=== PATIENT | female | born 1945 | race Caucasian/White ===

== ENCOUNTER 2017-07-25 13:18 | Emergency (ER) | payer OTHER ==
[2017-07-25] MEDS ORDERED: HYDROcod/ACETAM 5/325 MG TABLET PO STA (13:56)
--- NOTE | 2017-07-25 13:57 | ED Physician Documentation ---
History of Present Illness - Stated complaint Stated Complaint: NECK PX - Chief complaint Chief Complaint: General - History obtained from History obtained from: Patient - History of Present Illness Timing: Other (Over a month ago she fell pretty hard and hit her head. She has been having any problems until 2 days ago when she woke up with neck pain, predominantly on the right side. It hurts to both flex the neck and rotate to the right. No other new injuries. She denies weakness, numbness, tingling in the arms or extremities.) Review of Systems Constitutional: denies: Fever, Chills Throat: denies: Dental pain / toothache, Sore throat Cardiac: denies: Chest pain / pressure, Palpitations Respiratory: denies: Dyspnea, Cough PD PAST MEDICAL HISTORY - Present Medications Home Medications: Ambulatory Orders Medication Instructions Recorded Confirmed HYDROcod/ACETAM 5/325 [[place] 5/325] 1 - 2 ea PO Q6H PRN #15 tablet 07/25/17 Simvastatin 40 mg DAILY 07/25/17 07/25/17 - Allergies Allergies/Adverse Reactions: Allergies Allergy/AdvReac Type Severity Reaction Status Date / Time cephalexin [From Keflex] Allergy Mild Hives Verified 07/25/17 13:46 PD ED PE NORMAL - Vitals Vital signs reviewed: Yes - General General: Alert and oriented X 3, No acute distress - HEENT HEENT: PERRL, EOMI - Neck Neck: Other (She is having a lot of difficulty with movement of the neck, she is focally tender over the right sternocleidomastoid and not the midline. 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, interosseous strength, flexion and extension at the wrists, and thumb extension on both sides.) - Neuro Neuro: Alert and oriented X 3, Normal speech Results - Vitals Vitals: Vital Signs - 24 hr 07/25/17 07/25/17 13:40 15:15 Temperature 36.8 C 37.4 C Heart Rate 97 83 Respiratory 18 20 Rate Blood Pressure 187/100 H 159/84 H O2 Saturation 96 97 Oxygen O2 Source Room air - Rads (name of study) C spine CT Radiology: EMP read contemporaneously (Multilevel degenerative changes and osteoarthritic changes causing multilevel stenosis which is mild to moderate.) PD MEDICAL DECISION MAKING - ED course ED course: Clinically this seems most consistent with simple neck spasm, but given the antecedent trauma imaging was done without acute findings but she was counseled on the chronic findings that were found and given a copy of the report. - Sepsis Event Vital Signs: Vital Signs - 24 hr 07/25/17 07/25/17 13:40 15:15 Temperature 36.8 C 37.4 C Heart Rate 97 83 Respiratory 18 20 Rate Blood Pressure 187/100 H 159/84 H O2 Saturation 96 97 Oxygen O2 Source Room air Departure - Departure Disposition: 01 Home, Self Care Clinical Impression: Neck pain, Cervical stenosis of spinal canal Condition: Good Record reviewed to determine appropriate education?: Yes Instructions: ED Neck Pain No Trauma Prescriptions: HYDROcod/ACETAM 5/325 [[place] 5/325] 1 - 2 ea PO Q6H PRN #15 tablet PRN Reason: Pain Comments: You do have multilevel degenerative changes of your neck, but nothing from the injury a month ago. Follow-up with your physician. Return if worse. Your blood pressure was elevated today on check into the emergency department. This does not mean that you have hypertension, it is a common phenomenon to come to the emergency department and have elevated blood pressure. I recommend that you see your primary care physician within the week to have it rechecked when you are feeling better. Discharge Date/Time: 07/25/17 15:44
[2017-07-25 15:17] VITALS: BP 159/84
--- NOTE | 2017-07-25 16:10 | CT Report ---
Procedure Date: 07/25/2017 Accession Number: [id number] / [id number] Procedure: CT - Cervical Spine W/O CPT Code: FULL RESULT: EXAM: CT CERVICAL SPINE WITHOUT CONTRAST DATE: 07/25/2017 02:46 PM. HISTORY: Neck pain, injury. COMPARISONS: None. TECHNIQUE: Thin-section axial images were acquired of the cervical spine without contrast. Post-processing: Coronal and sagittal reformats. Other: None. In accordance with CT protocol optimization, one or more of the following dose reduction techniques were utilized for this exam: automated exposure control, adjustment of mA and/or KV based on patient size, or use of iterative reconstructive technique. FINDINGS: Alignment: No scoliosis. Moderate reversal of the normal cervical lordosis centered at C6-C7. 3 mm anterolisthesis at C4 on C5. 2 mm anterolisthesis at C5 on C6 and C7 on T1. Bones: No fracture or bone lesion. Interspace Levels/Facets: Moderate disk height loss and osteophytes at C3-C4, C5-C6, and C6-C7. C1-C2: Moderate degenerative changes anteriorly. C2-C3: Minimal disk osteophyte complex with small central disk protrusion. Minimal bilateral facet hypertrophy. Minimal central canal stenosis. C3-C4: Small disk osteophyte complex. Mild bilateral facet hypertrophy. [id number] central canal stenosis. Moderate bilateral neural foramen stenosis. C4-C5: Minimal disk osteophyte complex with small right paracentral disk protrusion. Moderate right facet hypertrophy. Mild central canal stenosis. C5-C6: Small disk osteophyte complex. Moderate left facet hypertrophy. Minimal central canal stenosis. Mild left neural foramen stenosis. C6-C7: Small disk osteophyte complex with small central disk perfusion. Minimal central canal stenosis. C7-T1: Minimal disk osteophyte complex. Mild bilateral facet hypertrophy. Mild left neural foramen stenosis. T1-T2: Minimal disk osteophyte complex. Mild bilateral facet hypertrophy. No stenosis. T2-T3: Partially visualized. Minimal disk osteophyte complex. Moderate right and mild left neural foramen stenosis. Musculature: No focal fatty atrophy. Other: The paravertebral and prevertebral soft tissues are unremarkable. The lung apices are clear. IMPRESSION: 1. No evidence of acute fracture. 2. Moderate reversal of the normal cervical lordosis at C6-C7 and minimal anterolisthesis at C4 on C5, C5 on C6, and C7 on T1. 3. Moderate degenerative disk and facet changes. 4. Disk osteophyte complex at C3-C4 results in [id number] central canal stenosis. 5. Right paracentral disk protrusion at C4-C5 results in mild central canal stenosis. 6. Disk osteophyte complexes at C2-C3, C5-C6, and C6-C7 result in minimal central canal stenosis. 7. Varying degrees of neural foramen stenosis, moderate at C3-C4 bilaterally. [facility]
== END 2017-07-25 15:44 | disposition home or self-care (01) ==
LOC: ED 13:18
DX: M54.2 Cervicalgia (principal); M48.02 Spinal stenosis, cervical region; R03.0 Elevated blood-pressure reading, without diagnosis of hypertension
CPT/HCPCS: 72125; 99283; A9270